=== PATIENT | male | born 1980 | race Caucasian/White ===

== ENCOUNTER 2017-05-21 07:27 | Day surgery (SDC) | payer BC, OTHER ==
[~2017-05-21 07:27] MED LIST: RINGER'S SOLUTION,LACTATED 1,000 ML IV PRN; ceFAZolin SODIUM 1 GM VIAL IV PRN
[2017-05-21] MEDS ORDERED: RINGER'S SOLUTION,LACTATED 1,000 ML IV ONE (08:02)
[2017-05-21] MEDS ORDERED: BUPIVACAINE HCL 50 ML VIAL IJ ONE ×2 (08:25)
[2017-05-21 09:24] VITALS: BP 123/62
--- NOTE | 2017-05-21 09:42 | OR ---
Operative Report - Dictated Report Narrative: Date: 05/21/2017 Physician: Jake Viera M.D. Chargemaster Specialist: Krunal Greer PA-C Preoperative diagnosis: Right carpal tunnel syndrome Postoperative diagnosis: Right carpal tunnel syndrome Procedure: Endoscopic right carpal tunnel release Anesthesia: MAC plus local Complications: None Estimated blood loss: Minimal Tourniquet time: 8 Minutes at 250 mmHg Specimens: None Retained implants: None Drains: None Indications: Mr. Davis Is a 36 year old gentleman who has been followed in my clinic with complaints of carpal tunnel syndrome. Physical exam as well as diagnostic testing showed compression of the median nerve compatible with carpal tunnel syndrome. Conservative measures have failed including but not limited to activity modification, medications, and/or bracing. The risks, benefits, and alternatives were discussed in clinic. The risks being bleeding, infection, nerve, tendon, blood vessel injury, persistent pain, wound competitions, weakness, palm pain, need for additional procedures, and persistent symptoms. Consent was obtained in the clinic. Procedure: After marking the correct extremity in the preoperative holding area, a timeout was performed in the operating room. IV antibiotics consisting of Ancef were administered prior to the procedure. A well-padded tourniquet was applied to the operative upper arm. The arm was exsanguinated and the tourniquet was inflated to 250 mmHg. 0.5% Marcaine without epinephrine was infused into the projected portal sites. Using Loupe magnification, a transverse incision was made in the proximal wrist flexion crease just ulnar to the ulnar to the palmaris longus tendon or in line with approximately the ring finger. Blunt dissection and hemostasis with bipolar cautery was utilized down to the forearm fascia. The forearm fascia was split longitudinally just ulnar to the palmaris longus exposing the entry into the carpal tunnel. A Snyder was placed under the transverse carpal ligament elevating the soft tissues under the dorsal aspect of the transverse carpal ligament. This was confirmed to be under the transverse carpal ligament based on the corrugated nature of the tissue. Once we had removed soft tissues from the transverse carpal ligament, a blunt trocar and cannula was introduced under the transverse carpal ligament exiting the palm through a brynn incision. The hand was then placed in a extension holding device and the camera was introduced into the cannula. A probe was utilized in order to ensure that all soft tissues were elevated off the dorsal aspect of the transverse carpal ligament and ensuring that all tissues were running transversely. No vascular or neurologic tissues were visualized. The push, followed by probe, followed by hook blades was utilized to transect the distal one half of the transverse carpal ligament. This allowed for ingress of fat. The camera was then placed distally looking proximally, and the proximal one half of the transverse carpal ligament was transected using the hook blade. This again allowed for ingress of fat. The probe blade was utilized in order to release any additional remaining fibers. Once it was felt that the transverse carpal ligament was completely transected, the blunt trocar was reintroduced into the trocar and removed in whole. A Ragnell was utilized in order to visualize the carpal tunnel ensuring that the transverse carpal ligament was completely released using a Snyder. The distal forearm fascia was released ensuring that the median nerve was completely decompressed utilizing tenotomy scissors. Once it was felt that all the tissues overlying the median nerve were completely released, the wounds were thoroughly irrigated with saline which passed freely from the proximal to distal portal holes. Tourniquet was deflated and hemostasis was obtained with pressure as well as bipolar cautery. Once bleeding had resolved and there was no excessive bleeding , the wounds were closed with interrupted nylon. Xeroform, 4 x 4's, soft roll, and a well-padded dorsal short arm wrist splint was applied, and the patient was awoken and transferred to the postanesthesia care unit in stable condition. All sponge, needle, blade, and instrument counts were correct prior to closing the wounds. Additional 0.5% Marcaine without epinephrine was infused into the skin edges for pain control.
== END 2017-05-21 07:28 | disposition home or self-care (01) ==
LOC: AMB 07:27
PROVIDERS: ATTEND Orthopaedic Surgery
PROC: 01N54ZZ Release Median Nerve, Percutaneous Endoscopic Approach (ICD-10-PCS; principal; 2017-05-21 09:15)
DX: G56.01 Carpal tunnel syndrome, right upper limb (principal); I10 Essential (primary) hypertension; F17.210 Nicotine dependence, cigarettes, uncomplicated; K50.90 Crohn's disease, unspecified, without complications; Z68.41 Body mass index [BMI] 40.0-44.9, adult